=== PATIENT | male | born 1995 ===

== ENCOUNTER 2023-10-09 14:16 | Outpatient (AMB) | payer OTHER, SELFPAY ==
--- NOTE | 2023-10-09 14:16 | AM.OFFWIN_ITS ---
Intake Vital Signs 10/09/23 14:17 Height 5 ft 8 in Weight 215 lb BMI 32.7 BP 110/70 Blood Pressure Location Lt brachial Position Sitting Pulse 79 Pulse Source Pulse Oximeter Temp 98.4 F Temp Source Oral Pulse Oximetry (%) 97 Oxygen Delivery Method Room Air Intake Visit Reasons: Left Leg pain Intake Note: pt c/o LT leg pain and swelling behind knee. Started Friday Patient Tobacco Use Status: Never used Tobacco Allergies No Known Allergies Allergy (Verified 10/09/23 14:17) Do you need a note to return to daycare/school/sports/work: No HPI HPI Comments History of Present Illness Details 28 y/o male patient who presents to the walk in clinic with c/o left lower leg pain x 1 week now. Reports pain located on the back of left knee radiating down to the Calf. Describes the pain as Pressure like . Denies numbness or tingling to the fingers. Denies injury or trauma to the leg. Denies any chronic medical problems. Denies using any medication to relieve the pain. 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 [facility] Social History Patient Tobacco Use Status: Never used Tobacco Physical Exam Vital Signs: Last Vital Signs Temp 98.4 F 10/09/23 14:17 Pulse 79 10/09/23 14:17 BP 110/70 10/09/23 14:17 Pulse Ox 97 10/09/23 14:17 Oxygen Delivery Method Room Air 10/09/23 14:17 BMI result Body Mass Index 32.7 Const General: cooperative, comfortable and no acute distress Nutritional Appearance: obese Orientation/consciousness: patient oriented x3 Skin General skin exam: no rashes or lesions noted Neuro General: patient oriented x3, gait normal and moves all extremities Extrem General: Yes normal to inspection, Yes full ROM, Yes capillary refill normal, Yes no pedal edema, Yes normal gait, Yes calf tenderness (left lower leg. ), No cyanosis, No edema, No muscle atrophy and No pedal edema Left lower extremity: normal to inspection, full ROM and lower leg Details: normal to inspection and no edema; no erythema, no tenderness, no ecchymosis and no crepitus Psych Speech and movement: Normal speech and movement present Assessment & Plan Assessment & Plan (1) Left leg pain: Code(s): M79.605 - Pain in left leg Plan: No clear Etiology. There is low chance of DVT. Possibly Muscle cramps. Advised to F/u with PCP for possible Imaging such as CT/MRI or US. Advised to take Acetaminophen or NSAIDs for pain relief. Wear comfortable shoes. Coding Level of Care Code New Pt Level 3 (87069) Diagnoses Left leg pain M79.605 Time Spent (min) 15
[2023-10-09 14:17] VITALS: BP 110/70; PULSE 79; TEMP 36.9; O2SAT 97; BMI 32.7
== END 2023-10-09 15:01 | disposition home or self-care (01) ==
PROVIDERS: Visit Provider Nurse Practitioner Family
DX: M79.605 Pain in left leg (principal)
CPT/HCPCS: 99203